=== PATIENT | female | born 1965 | race Caucasian/White ===

== ENCOUNTER 2018-06-28 04:12 | Emergency (ER) | payer BC, SELFPAY ==
[2018-06-28 04:17] VITALS: BP 133/69; PULSE 58; RESP 18; TEMP 36.8; O2SAT 100; BMI 19.5
--- NOTE | 2018-06-28 04:28 | EKG12_ITS ---
Test Reason : ABD PAIN Blood Pressure : / mmHG Vent. Rate : 056 BPM Atrial Rate : 056 BPM P-R Int : 170 ms QRS Dur : 082 ms QT Int : 450 ms P-R-T Axes : 086 060 069 degrees QTc Int : 434 ms Sinus bradycardia Otherwise normal ECG Confirmed by KARY SIFUENTES, LARRY ([id number]), design editor MARQUIS BANUELOS ([id number]) on 06/29/2018 11:53:49 AM Referred By: CF Confirmed By:LARRY PRESTON MD
[2018-06-28] MEDS: proMETHazine 25 MG/ML Syringe 12.5 MG IV (04:36)
[2018-06-28] MEDS: Morphine 4 MG/ML Syringe IV (04:36)
[2018-06-28] MEDS: 0.9% Normal Saline 1,000 ML 1000 ML IV (04:36)
[2018-06-28 04:41] LABS: Absolute Lymphocyte Count 2.62 X10^3/ul (0.83-4.51); Absolute Neutrophil Count 5.3 X10^3/uL (2.0-7.7); Basophil# 0.04 X10^3/uL; Basophil% 0.4 % (0-1); Eosinophil# 0.46 X10^3/uL; Hematocrit 38.3 % (37-47); Hemoglobin 12.4 g/dl (12.0-15.0); Lymphocyte # 2.62 X10^3/ul (4.0); Lymphocyte % 28.4 % (19-41); Mean Corp Hgb Conc 32.4 g/gl (32-36); Mean Corpuscular Hgb 30.5 pg (27.0-32.0); Mean Corpuscular Volume 94.3 fL (81-99); Mean Platelet Vol. 10.6 fl (6.2-12.0); Monocyte# 0.83 X10^3/uL; Neutrophil # 5.28 X10^3/uL (2.7-7.7); Neutrophil % 57.1 % (47-70); Platelet Count 191 K/mm3 (150-450); RBC Distribution Width CV 13.1 % (11.6-14.6); Red Blood Count 4.06 M/mm3 (4.2-5.4); White Blood Count 9.2 K/mm3 (4.4-11.0)
[2018-06-28 04:42] LABS: POSITIVE COUNT NO; POSITIVE DIFFERENTIAL NO; POSITIVE MORPHOLOGY NO
[2018-06-28 04:46] LABS: AST(SGOT) 68 U/L (15-37); Alanine Aminotransfer ALT/SGPT 66 U/L (13-56); Albumin, Serum 3.6 g/dL (3.2-5.0); Alkaline Phosphatase 100 U/L (45-117); Anion Gap 8 (5-15); BUN 18 mg/dL (7-18); BUN/Creat Ratio 23.9 RATIO (10-20); Calcium,Total 8.9 mg/dL (8.5-10.1); Chloride 106 mmol/L (98-107); Creatinine, Serum 0.75 mg/dL (0.55-1.02); EST Glomerular Filtration Rate 86 mL/min (>60); Est Glom Filt Rate - Afr Amer 104 mL/min (>60); Estimated Creatinine Clearance 91.48 ml/min; Globulin 3.5 g/dL (2.2-4.2); Glucose 112 mg/dL (74-106); Lipase 186 U/L (73-393); Protein, Total 7.1 g/dL (6.4-8.2); Sodium Level 143 mmol/L (136-145)
--- NOTE | 2018-06-28 05:09 | CT_ITS ---
STUDY: CT ABDOMEN AND PELVIS WITH CONTRAST REASON FOR EXAM: Female, 52 years old. Epigastric pain for 5 hours. Nausea. RADIATION DOSAGE (If Supplied By Facility): CTDIvol = ( 9.57 ) mGy, DLP = ( 478.31 ) mGycm TECHNIQUE: Transaxial images were obtained from the dome of the diaphragm to the symphysis pubis without oral contrast. 80ML ml of Isovue 300 contrast was administered. Sagittal and coronal images were reconstructed. Individualized dose optimization techniques were used for this CT. COMPARISON: None. FINDINGS: The visualized lung bases are unremarkable. The visualized portions of the heart are within normal limits. 1.3 cm simple cyst right lobe of the liver under the dome of the right hemidiaphragm. Gallbladder absent compatible with cholecystectomy. Mild periportal edema probably related to cholecystectomy. Normal spleen. Normal pancreas. Normal bilateral adrenal glands. Normal right kidney. Normal left kidney. Surgical changes of gastrectomy by history. Appendix not visualized compatible with history of appendectomy. Postoperative changes left abdomen with formation of a pouch. Postoperative changes suggestive of partial colectomy. On the marking stitcher view there is air in the left abdomen which may represent dilated small bowel versus postoperative change. Normal abdominal aorta. Normal inferior vena cava. Normal retroperitoneum. No intra-abdominal free air. Normal urinary bladder. The uterus absent with history of hysterectomy. No adnexal mass is seen. Normal abdominal wall. Normal osseous structures. CT/Abdomen/Pelvis WITH Contrast IMPRESSION: Extensive postoperative changes in the abdomen and pelvis. Recommend comparison to prior studies to assess stability, particularly regards to an apparent postoperative pouch in the left abdomen. Questionable dilated loops of small bowel in the left abdomen. Correlate with past surgical history. Electronically Signed: Juan Escamlila MD at 6:11 EDT , Service support ,
--- NOTE | 2018-06-28 05:11 | ED.DCSUM_ITS ---
- ER Visit Summary Date of Service: 06/28/18 Chief Complaint: [Abdominal pain] History of Present Illness: The patient is a 52 F [the presents with about 5 hours of epigastric abdominal pain that radiates to her back she states. She describes nausea but no vomiting. She has a history of familial polyposis and has had prior gastrectomy and total colectomy. No fever or urinary symptoms. She appears in no acute distress. She has no other complaints. She denies any chest pain or shortness of breath.] Physical Examination: [General: The patient appears well and in no apparent distress. Patient is resting comfortably on cart. Skin: Warm, dry, no pallor noted. No rash. Head: Normocephalic, atraumatic Neck: Supple, nontender. ENT: Moist mucus membranes, pharynx within normal limits. Cardiovascular: Regular Rate and Rhythm, no gallups or rubs Respiratory: Patient is in no distress, no accessory muscle use, lungs are clear to auscultation, no wheezing, rales or rhonchi Musculoskeletal: normal ROM, no deformity, no tenderness, no swelling. 2+ radial and DP pulses symmetric. GI: Epigastric tenderness to palpation, no masses appreciated. No rebound, guarding, or rigidity noted. No hernia or mass. No pulsatile mass. Neurological: A&O, normal strength and sensation. Psychiatric: Cooperative] Test Results: [Bloodwork overall unremarkable. EKG shows sinus rhythm without evidence of ischemia or arrhythmia. Normal intervals. No heart blocks.] Emergency Department Course and Treatment: [Patient was given IV fluids, morphine, and Phenergan. CT imaging was obtained that showed a pouch structure left abdomen and dilated small loops of bowel. I spoke with Dr. De Luna who reviewed the CT imaging here in the ED and was concerned about possible intussusception. He feels patient should be transferred to [facility] for further evaluation. Currently [facility] and [facility] sites are full. We are awaiting callback from transfer line for transfer to another [facility] site. Patient is agreeable with this plan. ] Treatment Plan: [see above] Disposition: [transfer] Impression: [Abdominal Pain, Intussusception versus early small bowel obstruction] Critical Care Time 40 minutes This note was generated with [employer] dictation software. It may contain incorrect words, spelling, and punctuation that were not noted in review of the chart prior to signing ED Disposition - Plan for ED Patient: Chief Complaint: Abd Pain Referrals: Radha Fontaine MD [Primary Care Provider] -
[2018-06-28] MEDS: HYDROmorphone 1 MG/ML Syringe IV ×2 (05:35→09:31)
[2018-06-28 07:16] VITALS: BP 117/63; PULSE 56; RESP 16; O2SAT 100
[2018-06-28 09:34] VITALS: BP 139/84; PULSE 78; RESP 15; O2SAT 97
[2018-06-28 10:30] VITALS: BP 121/64; PULSE 56; RESP 16; TEMP 36.7; O2SAT 100
== END 2018-06-28 10:43 | disposition short-term general hospital (02) ==
PROVIDERS: Emergency Provider Emergency Medicine; Family Provider Internal Medicine; PCP Internal Medicine
DX: R10.13 Epigastric pain (principal); R11.0 Nausea; Z90.3 Acquired absence of stomach [part of]; Z90.49 Acquired absence of other specified parts of digestive tract; Z79.899 Other long term (current) drug therapy
CPT/HCPCS: 74177; 80053; 83690; 85025; 93005; 96361; 96374; 96375; 96376; 99284; J7030; Q9967